=== PATIENT | female | born 1955 | race Caucasian/White ===

== ENCOUNTER 2022-03-02 13:46 | Outpatient (CLI) | payer MEDICARE, SELFPAY ==
--- NOTE | 2022-03-02 14:00 | CRLHL7_ITS ---
For Patients: As a result of the Century Cures Act, medical imaging exams and procedure reports are released immediately into your electronic medical record. You may view this report before your referring provider. If you have questions, please contact your health care provider. DXA BONE MINERAL DENSITY STUDY Current height (in): 67.5. Weight (lb): 207. Menopause age: 55. Ethnicity: White. 1. Have you had a previous hip or vertebral fracture? No. 2. Have you had any fractures during your adult life which did not result from significant trauma (e.g., auto accident)? No. 3. Did either of your parents have a hip fracture? No. 4. Do you smoke? No. 5. Have you ever taken Glucocorticoids? No. 6. Do you have rheumatoid arthritis? No. 7. Do you have secondary osteoporosis? No. 8. Do you drink 3 or more alcoholic drinks per day? No. 9. Are you being treated for osteoporosis? No. 10. Have you ever taken any of the following medications: Actonel, Evista, Fosamax, Miacalcin, Reclast, Boniva, Forteo, HRT (i.e. estrogen/hormone therapy), Protelos, Prolia, Vitamin D, Calcium, other ??? please specify. ANSWER: Yes, Vitamin D. 11. Do you have any of the following medical conditions: Anorexia or bulimia, asthma or emphysema, end stage renal disease, hyperparathyroidism, any seizure disorders, cancer, inflammatory bowel diseases, hysterectomy, other ??? please specify. ANSWER: No. 12. What was your maximum height (inches)? 68. 13. Do you perform weight bearing exercise regularly? No. 14. Do you regularly consume dairy products? Yes. 15. Do you drink caffeinated beverages? Yes. If female: 16. At what age did your period start? 13. 17. Are you premenopausal? No. 18. How many full term pregnancies have you had? 4. 19. Have you ever missed your period for more than 6 months in a row (not including or menopause)? No. TECHNIQUE: Bone mineral density study was performed using the [employer]. FINDINGS: The results of the study expressed as bone mineral density (BMD) are as follows: Lumbar spine L1 to L4: BMD: 1.079 g/cm2. T-score: 0.3. Z-score: 2.1. Neck Left: BMD: 0.708 g/cm2. T-score: -1.3. Z-score: 0.3. Right: BMD: 0.684 g/cm2. T-score: -1.5. Z-score: 0.1. Total Left: BMD: 0.922 g/cm2. T-score: -0.2. Z-score: 1.1. Right: BMD: 0.865 g/cm2. T-score: -0.6. Z-score: 0.7. IMPRESSION: Osteopenia. FRAX 10-year Fracture Risk Major Osteoporotic Fracture: 8.5 percent Hip Fracture: 0.9 percent Reported Risk Factors: [place] () Neck BMD = 0.684, BMI = 31.9 Madhav Brink M.D. Diagnostic Radiologist [email or web address] ORLIN/Dictated by: Madhav Brink MD @ 03/03/2022 4:55:00 PM (Electronically Signed)
== END 2022-03-02 13:47 | disposition home or self-care (01) ==
LOC: RAD 13:50
PROVIDERS: PCP Family Medicine; Visit Provider Family Medicine
DX: Z13.820 Encounter for screening for osteoporosis (principal); M85.89 Other specified disorders of bone density and structure, multiple sites
CPT/HCPCS: 77080

== ENCOUNTER 2023-02-23 11:02 | Outpatient (CLI) | payer MEDICARE, SELFPAY | END 2023-02-23 11:03 | disposition home or self-care (01) | PROVIDERS: PCP Family Medicine; Visit Provider Family Medicine | DX: Z00.00 Encounter for general adult medical examination without abnormal findings (principal); E78.00 Pure hypercholesterolemia, unspecified; G43.909 Migraine, unspecified, not intractable, without status migrainosus; R39.9 Unspecified symptoms and signs involving the genitourinary system | CPT/HCPCS: 80048; 82306; 82607; 84443 ==

== ENCOUNTER 2023-12-05 17:36 | Outpatient (CLI) | payer MEDICARE, SELFPAY ==
--- OUTSIDE RECORDS SUMMARY | 2023-12-14 12:30 | XMS_ITS | Clinical Summary ---
Author Name Unknown Organization [facility] Address [place], [place] [address] Care Team Providers Care Campus Manager Name Role Phone Ray Gomez MD Primary Care Provider [phone] Allergies Active Allergy Reactions Criticality Noted Date Comments Penicillins Rash 12/23/2005 Sulfa (Sulfonamide Antibiotics) Hives 02/18 Medications Medication Sig Dispensed Refills Start Date End Date Status IBUPROFEN 200 MG TAB take 1 tablet (200mg) by oral route every 6 hours as needed with food 0 10/06/2006 Active nabumetone (RELAFEN) 500 mg tabletIndications: Pain in joint, pelvic region and thigh Take 1 tablet by mouth 2 times daily if needed for Pain. 30 tablet prn 11/04/2010 Active amitriptyline (ELAVIL) 25 mg tabletIndications: Migraine, unspecified, without mention of intractable migraine without mention of status migrainosus Take 1 tablet by mouth at bedtime if needed for Sleep. 30 tablet prn 11/04/2010 Active SUMAtriptan (IMITREX) 100 mg tabletIndications: Migraine, unspecified, without mention of intractable migraine without mention of status migrainosus Max dose: 200mg/ 24 hrs.1 tab at onset of a migraine attack; if headache returns, the dose repeated at 2 hrs, not to exceed daily 200mg 12 tablet prn 11/15/2010 Active acetaminophen (TYLENOL) 325 mg tablet Take by mouth every 4 hours if needed. Max acetaminophen dose: 4000mg in 24 hrs. Active oxyCODONE-acetamin ophen, 5-325 mg, (PERCOCET) per tablet Take 1-2 tablets by mouth every 4 hours if needed for Pain. Max acetaminophen dose: 4000mg in 24 hrs. 30 tablet 0 03/09/2012 Active Active Problems Problem Noted Date Diagnosed Date Other and unspecified ovarian cyst 07/09/2009 Kidney stone 07/07/2009 Overview: RESULT: 90% Calcium oxalate dihydrate RESULT: 10% Calcium oxalate monohydrate Recommendations for now include: Limiting protein: Protein -- A high animal protein intake is commonly associated with an increased incidence of stone disease so try limiting protein to less than 6 oz a day A higher dietary potassium intake substantially reduced the risk of incident stone formation - encourage fruits and vegetables water intake is important- at least 8 glasses a day Left Hip pain- arthritis 04/20/2007 Migraine, unspecified, witho ut mention of intractable migraine without mention of status migrainosus 04/20/2007 Overview: since teenager- works to take imitex & Amitriptiline 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 Doesn't want to take daily- doesn't work for her- she had it up to 250 milligrams Inderal didn't work, depakote, SSRI, calcium channel blockers, Saw Dr. Avalos. 11/04/10Has taken 3 pills of amitrtiptilie since 2008. Naproxen #30 should last a year she thinks. Imitrex, filling every 2 months now Resolved Problems Problem Noted Date Diagnosed Date Resolved Date Migraine, unspecified, witho ut mention of intractable migraine without mention of status migrainosus 12/23/2005 04/20/2007 PHARYNGITIS - ACUTE 02/16/2005 12/24/19 06 Immunizations Name Administration Dates Next Due Td (Age >=7 Years) 07/21/2003 Family History Medical History Relation Name Comments Alcohol/Drug Brother Allergies Brother Thyroid Disease Child hypothyroid Cancer Father lymphoma Arthritis Mother Cancer Mother kidney Thyroid Disease Mother Genetic Other daughter hypoth yroidism, dx as a teenage Allergies Sister Arthritis Sister Cancer Sister skin- Relation Name Status Comments Brother Child Father Mother Other Sister Social History Tobacco Use Types Packs/Day Years Used Date Smoking Tobacco: Never Smokeless Tobacco: Never Alcohol Use Standard Drinks/Week Comments Yes 0 (1 standard drink = 0.6 oz pur e alcohol) wine occassionally Sex and Gender Information Value Date Recorded Sex Assigned at Not on file Gender Identity Not on file Sexual Orientation Not on file Obstetrics History Para Term AB IAB SAB Ectopic Multiple Livin g Live Births 5 4 4 0 1 0 1 0 0 4 Date Outcome GA Total Labor Labor/2nd/3rd Weight Sex Delivery Anes PTL Eri A1 A5 Name Cl in SAB Term Term Term Term Last Filed Vital Signs Vital Sign Reading Time Taken Comments Blood Pressure 141/81 07/05/2023 12:59 AM OYSTER CULTURIST Pulse 63 07/05/2023 12:59 AM OYSTER CULTURIST Temperature 36.1 ??C (97 ??F) 07/04/2023 1:58 PM OYSTER CULTURIST Respiratory Rate 16 07/05/2023 12:59 AM OYSTER CULTURIST Oxygen Saturation 95% 07/05/2023 12:59 AM OYSTER CULTURIST Inhaled Oxygen Concentration - - Weight 90.7 kg (200 lb) 07/04/2023 1:58 PM OYSTER CULTURIST Height 172.7 cm (5' 8) 07/04/2023 1:58 PM OYSTER CULTURIST Body Mass Index 30.41 07/04/2023 1:58 PM OYSTER CULTURIST Plan of Treatment Health Maintenance Due Date Last Done Comments Tdap 12/17/1966 Depression screening for age 12+ 1967 BMI (ht and wt on same day) for age 18+ 12/17/1973 Hepatitis C screening for age 18-79 12/17/1973 Colonoscopy through age 75 12/17/2000 Mammogram for age 45-75 08/04/2004 08/04/2003, 07/21 Zoster (shingles) series for age 50+ (1 of 2) 12/17/2005 Lipids for age 45-75 12/23/2010 12/23/2005 Tetanus booster 07/21/2013 07/21/2003 DEXA/DXA scan for age 65+ 12/17/2020 Pneumococcal series for age 65+ (1 of 1 - PCV) 12/17/2020 COVID-19 vaccine series (1 - 2022- season) 2023 Influenza for age 65+ 04/21/2024 Medical Devices Implanted Type Area Nail Technician Device Identifier Shelf Expiration Date Model / Serial / Lot Stent [id number] [id number] Implanted:Qty: 1 on 03/09/2012 by Jair Dunham MD at [facility] Right: Kidney [facility] 12/08/2014 [id number] / / [id number] Procedures Procedure Name Priority Date/Time Associated Diagnosis Comments LIPID PANEL Routine 12/23/2005 9:55 AM CDT Chest Pain XR MAMMO SCREENING BILATERAL (IA) Routine 08/04/2003 3:54 PM OYSTER CULTURIST from Last 3 Months or Most Recently Relevant to Health Maintenance Results * LIPID PANEL (12/23/2005 9:55 AM CDT) CHOLESTEROL,TOTAL 168 110 - 199 mg/dL [facility] TRIGLYCERIDES 69 40 - 149 mg/dL [facility] HDL CHOLESTEROL 49 >40 mg/dL [facility] CHOL/HDL RATIO 3.43 <4.51 [facility] LDL CHOLESTEROL 105 <131 mg/dL [facility] PATIENT STATUS Fasting [facility] Blood specimen (specimen) BLOOD SPECIMEN / Unknown 12/23/2005 9:55 AM CDT 12/23/2005 9:55 AM CDT Kiera Regan MD CHEMISTRY [facility] INTERNAL ZIP [address] [place], [place] [id number] * XR MAMMO SCREENING BILATERAL (08/04/2003 3:54 PM OYSTER CULTURIST) MAMMOGRAM negative Anatomical Region Laterality Modality BREASTS, Breast Left, Breast Right Bilateral Mammography 08/04/2003 3:54 PM OYSTER CULTURIST Narrative 02/01/2004 1:04 PM CDT Ordered by an unspecified provider. Other Clinical Staff MAMMO from Last 3 Months or Most Recently Relevant to Health Maintenance Advance Directives * Full Code (Latest Code Status on File) Date Activated Date Inactivated Comments 03/09/2012 8:14 AM 03/09/2012 5:52 PM Care Teams Campus Manager Relationship Specialty Start Date End Date Ray Gomez MD [address] [place] [address] PCP - General Family Practice 07/04/23
== END 2023-12-05 17:37 | disposition home or self-care (01) ==
LOC: NFLDREF 12-14 12:27
PROVIDERS: PCP Family Medicine; Referring Provider Family Medicine; Visit Provider Physician Assistant
DX: R30.0 Dysuria (principal)
CPT/HCPCS: 87086

== ENCOUNTER 2024-03-15 09:02 | Outpatient (CLI) | payer MEDICARE, SELFPAY ==
--- OUTSIDE RECORDS SUMMARY | 2024-03-18 11:20 | XMS_ITS | Clinical Summary ---
Author Organization [employer] [facility] Address [place], [place] [address] Care Team Providers Care Registered Respiratory Technician Name Role Phone Ray Gomez MD Primary Care Provider Allergies Active Allergy Reactions Criticality Noted Date [...] Outcome GA Total Labor Labor/2nd/3rd Weight Sex Type Anes PTL Eri A1 A5 Name Clin SAB Term Term Term Term Last Filed Vital Signs Vital Sign Reading Time Taken Comments Blood Pressure 141/81 07/05/2023 12:59 AM HAND DEICER ELEMENT WINDER Pulse 63 07/05/2023 12:59 AM HAND DEICER ELEMENT WINDER Temperature 36.1 ??C (97 ??F) 07/04/2023 1:58 PM HAND DEICER ELEMENT WINDER Respiratory Rate 16 07/05/2023 12:59 AM HAND DEICER ELEMENT WINDER Oxygen Saturation 95% 07/05/2023 12:59 AM HAND DEICER ELEMENT WINDER Inhaled Oxygen Concentration - - Weight 90.7 kg (200 lb) 07/04/2023 1:58 PM HAND DEICER ELEMENT WINDER Height 172.7 cm (5' 8) 07/04/2023 1:58 PM HAND DEICER ELEMENT WINDER Body Mass Index 30.41 07/04/2023 1:58 PM HAND DEICER ELEMENT WINDER Plan of Treatment Health Maintenance Due Date [...] 65+ 04/21/2024 Medical Devices Implanted Type Area Director Of Strategic Partnerships Device Identifier Shelf Expiration Date Model / Serial / Lot Stent Prcflx [id number] [facility] [id number] Implanted:Qty: 1 on 03/09/2012 by Jair Dunham MD at [facility] Right: Kidney C Urology 12/08/2014 [id number]# / / [id number] Procedures Procedure Name Priority Date/Time Associated Diagnosis Comments LIPID PANEL Routine 12/23/2005 9:55 AM CDT Chest Pain XR MAMMO SCREENING BILATERAL (IA) Routine 08/04/2003 3:54 PM HAND DEICER ELEMENT WINDER from Last 3 Months or Most Recently Relevant to Health Maintenance Results * LIPID PANEL (12/23/2005 9:55 AM CDT) CHOLESTEROL,TOTAL 168 110 - 199 mg/dL [facility] TRIGLYCERIDES 69 40 - 149 mg/dL [facility] HDL CHOLESTEROL 49 >40 mg/dL [facility] CHOL/HDL RATIO 3.43 <4.51 [facility] LDL CHOLESTEROL 105 <131 mg/dL [facility] PATIENT STATUS Fasting [facility] Blood specimen (specimen) BLOOD SPECIMEN / Unknown 12/23/2005 9:55 AM CDT 12/23/2005 9:55 AM CDT Kiera Regan MD CHEMISTRY [facility] INTERNAL ZIP [address] [place] [id number] * XR MAMMO SCREENING BILATERAL (08/04/2003 3:54 PM HAND DEICER ELEMENT WINDER) MAMMOGRAM negative Anatomical Region Laterality Modality BREASTS, Breast Left, Breast Right Bilateral Mammography 08/04/2003 3:54 PM HAND DEICER ELEMENT WINDER Narrative 02/01/2004 1:04 PM CDT Ordered by an unspecified provider. Other Clinical Staff MAMMO from Last 3 Months or Most Recently Relevant to Health Maintenance Advance Directives * Full Code (Latest Code Status on File) Date Activated Date Inactivated Comments 03/09/2012 8:14 AM 03/09/2012 5:52 PM Care Teams Registered Respiratory Technician Relationship Specialty Start Date End Date Ray Gomez MD [address] [place] [address] PCP - General Family Practice 07/04/23
== END 2024-03-15 09:03 | disposition home or self-care (01) ==
LOC: NFLDREF 03-18 11:18
PROVIDERS: PCP Family Medicine; Referring Provider Family Medicine; Visit Provider Family Medicine
DX: Z00.00 Encounter for general adult medical examination without abnormal findings (principal); E78.00 Pure hypercholesterolemia, unspecified; R05.9 Cough, unspecified; Z11.59 Encounter for screening for other viral diseases
CPT/HCPCS: 80061; 82306; 86803

== ENCOUNTER 2024-04-10 13:01 | Outpatient (CLI) | payer MEDICARE, SELFPAY ==
--- OUTSIDE RECORDS SUMMARY | 2024-04-10 13:05 | XMS_ITS | Clinical Summary ---
Author Organization [facility] Address [place], [place] [address] Care Team Providers Care Medical Nurse Name Role Phone Ray Gomez MD Primary Care Provider [phone] Allergies Active Allergy Reactions Criticality Noted Date [...] Comments Blood Pressure 141/81 07/05/2023 12:59 AM ULTRASONIC SOLDERER Pulse 63 07/05/2023 12:59 AM ULTRASONIC SOLDERER Temperature 36.1 ??C (97 ??F) 07/04/2023 1:58 PM ULTRASONIC SOLDERER Respiratory Rate 16 07/05/2023 12:59 AM ULTRASONIC SOLDERER Oxygen Saturation 95% 07/05/2023 12:59 AM ULTRASONIC SOLDERER Inhaled Oxygen Concentration - - Weight 90.7 kg (200 lb) 07/04/2023 1:58 PM ULTRASONIC SOLDERER Height 172.7 cm (5' 8) 07/04/2023 1:58 PM ULTRASONIC SOLDERER Body Mass Index 30.41 07/04/2023 1:58 PM ULTRASONIC SOLDERER Plan of Treatment Health Maintenance Due Date [...] 65+ 04/21/2024 Medical Devices Implanted Type Area Residential Direct Support Professional Device Identifier Shelf Expiration Date Model / Serial / Lot Stent Prcflx [id number] [facility] [id number] Implanted:Qty: 1 on 03/09/2012 by Jair Dunham MD at [facility] Right: Kidney C Urology 12/08/2014 [id number]# / / [id number] Procedures Procedure Name Priority Date/Time Associated Diagnosis Comments LIPID PANEL Routine 12/23/2005 9:55 AM CDT Chest Pain XR MAMMO SCREENING BILATERAL (IA) Routine 08/04/2003 3:54 PM ULTRASONIC SOLDERER from Last 3 Months or Most Recently Relevant to Health Maintenance Results * LIPID PANEL (12/23/2005 9:55 AM CDT) CHOLESTEROL,TOTAL 168 110 - 199 mg/dL [facility] TRIGLYCERIDES 69 40 - 149 mg/dL [facility] HDL CHOLESTEROL 49 >40 mg/dL [facility] CHOL/HDL RATIO 3.43 <4.51 [facility] LDL CHOLESTEROL 105 <131 mg/dL [facility] PATIENT STATUS Fasting [facility] Blood specimen (specimen) BLOOD SPECIMEN / Unknown 12/23/2005 9:55 AM CDT 12/23/2005 9:55 AM CDT Kiera Regan MD CHEMISTRY [facility] INTERNAL ZIP [address] [place] [address] * XR MAMMO SCREENING BILATERAL (08/04/2003 3:54 PM ULTRASONIC SOLDERER) MAMMOGRAM negative Anatomical Region Laterality Modality BREASTS, Breast Left, Breast Right Bilateral Mammography 08/04/2003 3:54 PM ULTRASONIC SOLDERER Narrative 02/01/2004 1:04 PM CDT Ordered by an unspecified provider. Other Clinical Staff MAMMO from Last 3 Months or Most Recently Relevant to Health Maintenance Advance Directives * Full Code (Latest Code Status on File) Date Activated Date Inactivated Comments 03/09/2012 8:14 AM 03/09/2012 5:52 PM Care Teams Medical Nurse Relationship Specialty Start Date End Date Ray Gomez MD [address] [place] [address] PCP - General Family Practice 07/04/23
--- NOTE | 2024-04-10 13:30 | CRLHL7_ITS ---
For Patients: As a result of the Century Cures Act, medical imaging exams and procedure reports are released immediately into your electronic medical record. You may view this report before your referring provider. If you have questions, please contact your health care provider. DXA BONE MINERAL DENSITY STUDY Current height (in): 67.5. Weight (lb): 193.0. Menopause age: 55. Ethnicity: White. Reason for exam: Osteopenia. 1. Have you had a previous hip or vertebral fracture? No. 2. Have you had any fractures during your adult life which did not result from significant trauma (e.g., auto accident)? No. 3. Did either of your parents have a hip fracture? No. 4. Do you smoke? No. 5. Have you ever taken Glucocorticoids? No. 6. Do you have rheumatoid arthritis? No. 7. Do you have secondary osteoporosis? No. 8. Do you drink 3 or more alcoholic drinks per day? No. 9. Are you being treated for osteoporosis? No. 10. Have you ever taken any of the following medications: Actonel, Evista, Fosamax, Miacalcin, Reclast, Boniva, Forteo, HRT (i.e. estrogen/hormone therapy), Protelos, Prolia, Vitamin D, Calcium, other ??? please specify. ANSWER: Yes, vitamin D, calcium. 11. Do you have any of the following medical conditions: Anorexia or bulimia, asthma or emphysema, end stage renal disease, hyperparathyroidism, any seizure disorders, cancer, inflammatory bowel diseases, hysterectomy, other ??? please specify. ANSWER: No. 12. What was your maximum height (inches)? 68. 13. Do you perform weight bearing exercise regularly? No. 14. Do you regularly consume dairy products? No. 15. Do you drink caffeinated beverages? Yes. 16. At what age did your period start? 13. 17. Are you premenopausal? No. 18. How many full-term pregnancies have you had? 4. 19. Have you ever missed your period for more than 6 months in a row (not including or menopause)? No. TECHNIQUE: Bone mineral density study was performed using the [employer]. FINDINGS: The results of the study expressed as bone mineral density (BMD) are as follows: Lumbar spine L1 to L4: BMD: 1.052 g/cm2. T-score: 0.0. Z-score: 2.0 Neck Left: BMD: 0.696 g/cm2. T-score: -1.4. Z-score: 0.3 Right: BMD: 0.710 g/cm2. T-score: -1.3. Z-score: 0.4 Total Left: BMD: 0.901 g/cm2. T-score: -0.3. Z-score: 1.1 Right: BMD: 0.870 g/cm2. T-score: -0.6. Z-score: 0.8 IMPRESSION: Osteopenia. *Comparison exams done prior to 01/2020 were performed on different unit, [email or web address]. COMPARISON: Compared with scan of 03/02/2022, the bone mineral density has decreased by 2.5 percent at the spine and decreased by 0.8 percent at the hip. FRAX 10-year Fracture Risk Major Osteoporotic Fracture: 9.0 percent Hip Fracture: 1.0 percent Reported Risk Factors: [place] () Neck BMD = 0.696, BMI = 29.8 Madhav Brink M.D. Diagnostic Radiologist [email or web address] Transcribed: 10:55 am DW/Dictated by: Madhav Brink MD @ 04/11/2024 10:02:00 AM (Electronically Signed)
== END 2024-04-10 13:02 | disposition home or self-care (01) ==
LOC: RAD 13:02
PROVIDERS: PCP Family Medicine; Visit Provider Family Medicine
DX: M85.80 Other specified disorders of bone density and structure, unspecified site (principal); M85.89 Other specified disorders of bone density and structure, multiple sites
CPT/HCPCS: 77080

== ENCOUNTER 2024-09-10 16:34 | Outpatient (CLI) | payer MEDICARE, SELFPAY | END 2024-09-10 16:35 | disposition home or self-care (01) | LOC: NFLDREF 09-11 00:36 | PROVIDERS: PCP Family Medicine; Referring Provider Family Medicine; Visit Provider Physician Assistant | DX: R35.0 Frequency of micturition (principal) | CPT/HCPCS: 87086 ==

== ENCOUNTER 2024-12-07 15:06 | Emergency (ER) | payer MEDICARE, SELFPAY ==
--- OUTSIDE RECORDS SUMMARY | 2024-12-07 15:08 | XMS_ITS | Clinical Summary ---
Author Organization [employer] [facility] Address [address] [place] [id number] Care Team Providers Care Ent Surgeon Name Role Phone Ray Gomez MD Primary Care Provider [phone] Allergies Active Allergy Reactions Criticality Noted Date Comments Penicillins Rash 12/23/2005 Sulfa (Sulfonamide Antibiotics) Hives 02/18 Medications IBUPROFEN 200 MG TAB take 1 tablet (200mg) by oral route every 6 hours as needed with food 0 7 Active nabumetone (RELAFEN) 500 mg tabletIndicatio ns:Pain in joint, pelvic region and thigh Take 1 tablet by mouth 2 times daily if needed for Pain. 30 tablet prn 1 Active amitriptyline (ELAVIL) 25 mg tabletIndicatio ns:Migraine, unspecified, without mention of intractable migraine without mention of status migrainosus Take 1 tablet by mouth at bedtime if needed for Sleep. 30 tablet prn 1 Active SUMAtriptan (IMITREX) 100 mg tabletIndicatio ns:Migraine, unspecified, without mention of intractable migraine without mention of status migrainosus Max dose: 200mg/ 24 hrs.1 tab at onset of a migraine attack; if headache returns, the dose repeated at 2 hrs, not to exceed daily 200mg 12 tablet prn 1 Active acetaminophen (TYLENOL) 325 mg tablet Take by mouth every 4 hours if needed. Max acetaminophen dose: 4000mg in 24 hrs. Active oxyCODONE-aceta minophen, 5-325 mg, (PERCOCET) per tablet Take 1-2 tablets by mouth every 4 hours if needed for Pain. Max acetaminophen dose: 4000mg in 24 hrs. 30 tablet 0 2 Active Active Problems Problem Noted Date Diagnosed Date Other and unspecified ovarian cyst 07/09/2009 Kidney stone 07/07/2009 Overview (07/15/2009): RESULT: 90% Calcium oxalate dihydrate RESULT: 10% [...] migraine without mention of status migrainosus 04/20/2007 Overview (11/04/2010): since teenager- works to take imitex & [...] PHARYNGITIS - ACUTE 02/16/2005 12/24/19 06 Immunizations Immunization Administration Dates Next Due Td (Age >=7 [...] 0.6 oz pur e alcohol) wine occassionally Comments No Sex and Gender Information Value Date Recorded Sex Assigned at Not on file Legal Sex Female 5:48 AM RHEOLOGIST Gender Identity Not on file Sexual Orientation [...] Comments Blood Pressure 141/81 07/05/2023 12:59 AM RHEOLOGIST Pulse 63 07/05/2023 12:59 AM RHEOLOGIST Temperature 36.1 C (97 F) 07/04/2023 1:58 PM RHEOLOGIST Respiratory Rate 16 07/05/2023 12:59 AM RHEOLOGIST Oxygen Saturation 95% 07/05/2023 12:59 AM RHEOLOGIST Inhaled Oxygen Concentration - - Weight 90.7 kg (200 lb) 07/04/2023 1:58 PM RHEOLOGIST Height 172.7 cm (5' 8) 07/04/2023 1:58 PM RHEOLOGIST Body Mass Index 30.41 07/04/2023 1:58 PM RHEOLOGIST Plan of Treatment Health Maintenance Due Date Last Done Comments Tdap 12/17/1966 Depression screening for age 12+ 1967 BMI (ht and wt on same day) for age 18+ 12/17/1973 Hepatitis C screening for age 18-79 12/17/1973 Colonoscopy through age 75 12/17/2000 Mammogram for age 45-75 08/04/2004 08/04/2003, 07/21 Pneumococcal series for age 50+ (1 of 1 - PCV) 12/17/2005 Zoster (shingles) series for age 50+ (1 of 2) 12/17/2005 Lipids for age 45-75 12/23/2010 12/23/2005 Tetanus booster 07/21/2013 07/21/2003 DEXA/DXA scan for age 65+ 12/17/2020 COVID-19 vaccine series (2023- season) 2024 Influenza Vaccine (Season Ended) 2025 RSV vaccine for adults or pr egnancy (1 - 1-dose 75+ series) 12/17/2030 Medical Devices Implanted Type Area Certified Veterinary Technician Device Identifier Shelf Expiration Date Model / Serial / Lot Stent [facility]cflx [id number] [facility] [id number] Implanted:Qty: 1 on 03/09/2012 by Jair Dunham MD at [facility] Right: Kidney [facility] 12/08/2014 [id number] / / [id number] Procedures Procedure Name Priority Date/Time Associated Diagnosis Comments LIPID PANEL Routine 12/23/2005 9:55 AM CDT Chest Pain XR MAMMO SCREENING BILATERAL (IA) Routine 08/04/2003 3:54 PM RHEOLOGIST from Last 3 Months or Most Recently Relevant to Health Maintenance Results * LIPID PANEL (12/23/2005 9:55 AM CDT) CHOLESTEROL,TOTAL 168 110 - 199 mg/dL [facility] TRIGLYCERIDES 69 40 - 149 mg/dL [facility] HDL CHOLESTEROL 49 >40 mg/dL [facility] CHOL/HDL RATIO 3.43 <4.51 [facility] LDL CHOLESTEROL 105 <131 mg/dL [facility] PATIENT STATUS Fasting [facility] Blood specimen (specimen) BLOOD SPECIMEN / Unknown 12/23/2005 9:55 AM CDT 12/23/2005 9:55 AM CDT us Kiera Regan MD CHEMISTRY F inal Result [facility] INTERNAL ZIP [id number] [address] * XR MAMMO SCREENING BILATERAL (08/04/2003 3:54 PM RHEOLOGIST) MAMMOGRAM negative Anatomical Region Laterality Modality BREASTS, Breast Left, Breast Right Bilateral Mammography 08/04/2003 3:54 PM RHEOLOGIST Narrative 02/01/2004 1:04 PM CDT Ordered by an unspecified provider. us Other Clinical Staff MAMMO Final Resul t from Last 3 Months or Most Recently Relevant to Health Maintenance Insurance MEDICARE PART B HB ONLY [facility] Advance Directives * Full Code (Latest Code Status on File) Date Activated Date Inactivated Comments 03/09/2012 8:14 AM 03/09/2012 5:52 PM Care Teams Ent Surgeon Relationship Specialty Start Date End Date Ray Gomez MD [address] [place] [address] PCP - General Family Practice 07/04/23
[2024-12-07 15:13] VITALS: BP 155/90; PULSE 81; RESP 18; TEMP 37.3; O2SAT 96; BMI 29.3
--- NOTE | 2024-12-07 15:19 | ED_ITS ---
HPI - Female Genitourinary General Time Seen by Provider: 15:19 Date Seen: 12/07/24 Chief complaint: Urogenital Problems, Female Stated complaint: UTI Time Seen by Provider: 12/07/24 15:19 Source: patient, RN notes reviewed and old records reviewed Mode of arrival: ambulatory Limitations: no limitations History of Present Illness HPI Narrative: 60-year-old female with history of kidney stones and urinary tract infections who presents to the emergency department with urinary symptoms. This been going on for 4 days, patient reports dysuria, frequency, and some low abdominal tenderness. She denies nausea, vomiting, flank taking, or hematuria. Has been taking azo, also drinking lots of fluids. Related Data Previous Rx's ?Medication ?Instructions ?Recorded amitriptyline 25 mg tablet 25 mg PO QHS PRN migraine #90 tabs 03/01/24 nabumetone 750 mg tablet 750 mg PO BID PRN DJD #60 tabs 03/01/24 sumatriptan succinate 100 mg tablet 25 - 100 mg (0.25 - 1 x 100 mg) PO 03/01/24 Q2-4H #9 tabs fluticasone 100 mcg-salmeterol 50 1 inh inhalation Q12H #60 ea 03/25/24 mcg/dose blistr powdr for inhalation (Wixela Inhub) cetirizine 10 mg tablet (Zyrtec) 10 mg PO QDAY PRN allergy symptoms 05/08/24 #30 tabs cefdinir 300 mg capsule 300 mg PO BID 7 days #14 caps 12/07/24 Allergies Allergy/AdvReac Type Severity Reaction Status Date / Time Penicillins Allergy Intermediate Rash Verified 09/10/24 16:32 [facility] Medical History Memory loss ?R41.3 - Other amnesia (ICD-10) Osteopenia ?M85.80 - Other specified disorders of bone density and structure, unspecified site (ICD-10) Bronchitis ?J40 - Bronchitis, not specified as acute or chronic (ICD-10) Chronic congestion of paranasal sinus ?J32.9 - Chronic sinusitis, unspecified (ICD-10) Vaccination declined ?Z28.21 - Immunization not carried out because of patient refusal (ICD-10) Medicare annual wellness visit, subsequent ?Z00.00 - Encounter for general adult medical examination without abnormal findings (ICD-10) Recurrent epistaxis ?R04.0 - Epistaxis (ICD-10) Osteoarthritis ?M19.90 - Unspecified osteoarthritis, unspecified site (ICD-10) Migraine headache ?G43.909 - Migraine, unspecified, not intractable, without status migrainosus (ICD-10) Hypercholesterolemia ?E78.00 - Pure hypercholesterolemia, unspecified (ICD-10) History of herniated intervertebral disc ?Z87.39 - Personal history of other diseases of the musculoskeletal system and connective tissue (ICD-10) Abdominal pain ?R10.9 - Unspecified abdominal pain (ICD-10) Dysuria ?R30.0 - Dysuria (ICD-10) Surgical History History of tonsillectomy ?Z90.89 - Acquired absence of other organs (ICD-10) Family History Other Cancer of kidney Lymphoma Stroke Social History Narrative: 4 children Non-smoker Smoking Status: Never smoker Do you use any of these nicotine containing products: None How often do you have a drink containing alcohol: monthly or less AUDIT-C Alcohol total score: 1 Non-prescribed substance use: denies use Exam Narrative: Exam Narrative: General: Well-developed and well-nourished, no acute distress Head: Atraumatic and normocephalic Eyes: Pupils are equal reactive, extraocular motions intact, conjunctiva clear ENT: External nose and ears are normal, posterior pharynx without erythema or exudate Neck: No midline cervical tenderness, full spontaneous range of motion the neck, trachea midline, no adenopathy Heart: Regular rate and rhythm no murmurs or thrills Lungs: Clear to auscultation bilaterally without wheezes or crackles Abdomen: Soft, nontender, nondistended with active bowel sounds Musculoskeletal: No tenderness, deformity, or edema Neurologic: Awake, alert, and oriented x3, no gross focal neurologic deficits, cranial nerves intact as tested Psych: Mood and affect are appropriate Skin: No rashes Const: Vital Signs, click to edit/add: Vital Signs - 24 hr 12/07/24 15:13 Temperature 99.2 F Pulse Rate [Pulse Oximeter] 81 Respiratory Rate 18 Blood Pressure [Ri ght Upper Arm] 155/90 H Pulse Oximetry 96 Oxygen Delivery Me thod Room Air Course Course ED Course: Reviewed prior records, patient with history of kidney stones in 2011 and underwent cystoscopy, ureteroscopy and stone ablation at that time. Patient seen and examined, presents today with dysuria and urinary frequency going on for the last 4 days. Denies flank pain or hematuria, history of kidney stones but says this feels More like prior urinary tract infections. On exam here, vital is stable, no flank tenderness to percussion. Urinalysis ordered, no indication for blood testing or CT scan at this time but consider further testing if urine shows evidence of hematuria or stone. Reevaluation(s) Time of Reevaluation #1: 15:46 Reevaluation #1: Urinalysis in the belly interpreted by me consistent with infection. Patient will be started on Omnicef and stable for discharge. Vital Signs Vital signs: Initial Vital Signs Temperature 99.2 F 12/07/24 15:13 Temperature Source Temporal Artery Scan 12/07/24 15:13 Pulse Rate 81 12/07/24 15:13 Respiratory Rate 18 12/07/24 15:13 Blood Pressure 155/90 H 12/07/24 15:13 Blood Pressure Mean 111 H 12/07/24 15:13 Pulse Oximetry 96 12/07/24 15:13 Oxygen Delivery Method Room Air 12/07/24 15:13 Vital Signs Temperature 99.2 F 12/07/24 15:13 Pulse Rate 81 12/07/24 15:13 Respiratory Rate 18 12/07/24 15:13 Blood Pressure 155/90 H 12/07/24 15:13 Pulse Oximetry 96 12/07/24 15:13 Oxygen Delivery Method Room Air 12/07/24 15:13 Temperature 99.2 F 12/07/24 15:13 Pulse Rate 81 12/07/24 15:13 Respiratory Rate 18 12/07/24 15:13 Blood Pressure 155/90 H 12/07/24 15:13 Pulse Oximetry 96 12/07/24 15:13 Oxygen Delivery Method Room Air 12/07/24 15:13 MDM - Female Genitourinary Lab Data Labs: Lab Results 04/19/25 Range/Units 15:19 Urine Color Yellow (Yellow) Urine Appearance Clear (Clear) Urine pH 6.0 (5.0-8.5) Ur Specific [place] <= 1.005 (1.000-1.030) Urine Protein Negative (Negative) Urine Glucose (UA) Negative (Negative) Urine Ketones Negative (Negative) Urine Blood 3+ A (Negative) Urine Nitrite Positive A (Negative) Urine Bilirubin Negative (Negative) Urine Urobilinogen 0.2 (0.2-1.0) Ur Leukocyte Esterase 3+ A (Negative) Discharge Plan Discharge Clinical Impression: Acute urinary tract infection Patient Disposition: Home, Self-Care Condition: Stable Instructions: Urinary Tract Infection in Women (DC) Additional Instructions: Continue azo for pain Start Omnicef (antibiotic ) as prescribed Activity Level: No Restrictions Discharge Diet: Regular Prescriptions: New cefdinir 300 mg capsule 300 mg PO BID 7 Days Qty: 14 0RF No Action sumatriptan succinate 100 mg tablet 25 - 100 mg PO Q2-4H Qty: 9 12RF nabumetone 750 mg tablet 750 mg PO BID PRN (Reason: DJD) Qty: 60 5RF amitriptyline 25 mg tablet 25 mg PO QHS PRN (Reason: migraine) Qty: 90 3RF fluticasone propion-salmeterol [Wixela Inhub] 100-50 mcg/dose blister with device 1 inh inhalation Q12H Qty: 60 1RF cetirizine [Zyrtec] 10 mg tablet 10 mg PO QDAY PRN (Reason: allergy symptoms) Qty: 30 5RF Follow Up/Referrals: Ray Gomez MD [Primary Care Provider] - Stand Alone Forms: ICVRxth Info Instructions
[2024-12-07 15:28] LABS: Appearance Urine Clear (Clear); Bilirubin Urine Negative (Negative); Blood Urine 3+ (Negative); Glucose Urine Negative (Negative); Ketones Urine Negative (Negative); Leukocyte Esterase Urine 3+ (Negative); Nitrite Urine Positive (Negative); Protein Urine Negative (Negative); Specific Gravity Urine <= 1.005 (1.000-1.030); Urobilinogen Urine 0.2 (0.2-1.0)
[2024-12-07 15:34] LABS: Color Urine Yellow (Yellow)
--- OUTSIDE RECORDS SUMMARY | 2024-12-07 15:44 | XMS_ITS | Clinical Summary ---
Author Organization [facility] Address [address] [place] [id number] Care Team Providers Care Wafer Fabrication Operator Name Role Phone Ray Gomez MD Primary Care Provider [phone] Allergies Active Allergy Reactions Criticality Noted Date [...] on file Legal Sex Female 5:48 AM SALES AND DISTRIBUTION CLERK Gender Identity Not on file Sexual Orientation [...] Comments Blood Pressure 141/81 07/05/2023 12:59 AM SALES AND DISTRIBUTION CLERK Pulse 63 07/05/2023 12:59 AM SALES AND DISTRIBUTION CLERK Temperature 36.1 C (97 F) 07/04/2023 1:58 PM SALES AND DISTRIBUTION CLERK Respiratory Rate 16 07/05/2023 12:59 AM SALES AND DISTRIBUTION CLERK Oxygen Saturation 95% 07/05/2023 12:59 AM SALES AND DISTRIBUTION CLERK Inhaled Oxygen Concentration - - Weight 90.7 kg (200 lb) 07/04/2023 1:58 PM SALES AND DISTRIBUTION CLERK Height 172.7 cm (5' 8) 07/04/2023 1:58 PM SALES AND DISTRIBUTION CLERK Body Mass Index 30.41 07/04/2023 1:58 PM SALES AND DISTRIBUTION CLERK Plan of Treatment Health Maintenance Due Date [...] series) 12/17/2030 Medical Devices Implanted Type Area Preschool Adviser Device Identifier Shelf Expiration Date Model / Serial / Lot Stent [facility]x [id number] [facility] [id number] Implanted:Qty: 1 on 03/09/2012 by Jair Dunham MD at [facility] Right: Kidney [facility] Urology 12/08/2014 [id number] / / [id number] Procedures Procedure Name Priority Date/Time Associated Diagnosis Comments LIPID PANEL Routine 12/23/2005 9:55 AM CDT Chest Pain XR MAMMO SCREENING BILATERAL (IA) Routine 08/04/2003 3:54 PM SALES AND DISTRIBUTION CLERK from Last 3 Months or Most Recently Relevant to Health Maintenance Results * LIPID PANEL (12/23/2005 9:55 AM CDT) CHOLESTEROL,TOTAL 168 110 - 199 mg/dL [facility] TRIGLYCERIDES 69 40 - 149 mg/dL [facility] HDL CHOLESTEROL 49 >40 mg/dL [facility] CHOL/HDL RATIO 3.43 <4.51 [facility] LDL CHOLESTEROL 105 <131 mg/dL [facility] PATIENT STATUS Fasting [facility] Blood specimen (specimen) BLOOD SPECIMEN / Unknown 12/23/2005 9:55 AM CDT 12/23/2005 9:55 AM CDT us Kiera Regan MD CHEMISTRY F inal Result [facility] INTERNAL ZIP [id number] [address] * XR MAMMO SCREENING BILATERAL (08/04/2003 3:54 PM SALES AND DISTRIBUTION CLERK) MAMMOGRAM negative Anatomical Region Laterality Modality BREASTS, Breast Left, Breast Right Bilateral Mammography 08/04/2003 3:54 PM SALES AND DISTRIBUTION CLERK Narrative 02/01/2004 1:04 PM CDT Ordered by an unspecified provider. us Other Clinical Staff MAMMO Final Resul t from Last 3 Months or Most Recently Relevant to Health Maintenance Insurance MEDICARE PART B HB ONLY [facility] Advance Directives * Full Code (Latest Code Status on File) Date Activated Date Inactivated Comments 03/09/2012 8:14 AM 03/09/2012 5:52 PM Care Teams Wafer Fabrication Operator Relationship Specialty Start Date End Date Ray Gomez MD [address] [place] [address] PCP - General Family Practice 07/04/23
[2024-12-07 15:52] LABS: Bacteria Urine Few; Squamous Epithelial Cell Urine Few (None-Few)
== END 2024-12-07 15:56 | disposition home or self-care (01) ==
PROVIDERS: Emergency Provider Family Medicine; PCP Family Medicine
DX: N39.0 Urinary tract infection, site not specified (principal)
CPT/HCPCS: 81001; 87086; 99283; 99284

== ENCOUNTER 2025-04-25 09:55 | Outpatient (CLI) | payer MEDICARE, SELFPAY | END 2025-04-25 09:56 | disposition home or self-care (01) | LOC: NFLDREF 04-30 11:54 | PROVIDERS: PCP Family Medicine; Referring Provider Family Medicine; Visit Provider Family Medicine | DX: Z00.00 Encounter for general adult medical examination without abnormal findings (principal); R41.3 Other amnesia; E78.00 Pure hypercholesterolemia, unspecified; M19.90 Unspecified osteoarthritis, unspecified site; M85.80 Other specified disorders of bone density and structure, unspecified site | CPT/HCPCS: 80053; 80061; 82306; 82607; 84443 ==